=== PATIENT | male | born 1950 | race Caucasian/White ===

== ENCOUNTER → 2020-03-17 | Outpatient (CLI) | payer MEDICARE ==
--- NOTE | 2020-03-17 10:04 | Diagnostic Imaging Report ---
Indication: Fall 4 days ago with wrist pain. No comparison. 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 There are atherosclerotic vascular calcifications. There is no focal soft tissue swelling to alert attention to any particular site of discrete pain. No appreciable fracture deformity. There is no dislocation. Impression : Osteoarthritis and atherosclerosis. No fracture or acute finding apparent. Dictated by: Dictated on workstation # [id number]
== END ==
LOC: RAD FS 09:22
PROVIDERS: ATTEND Family Medicine
DX: M19.031 Primary osteoarthritis, right wrist (principal); I70.90 Unspecified atherosclerosis
CPT/HCPCS: 73110

== ENCOUNTER → 2022-05-04 | Outpatient (CLI) | payer MEDICARE ==
--- NOTE | 2022-05-04 11:38 | Diagnostic Imaging Report ---
INDICATION: Back pain, radiculopathy down the right. No priors. Frontal, lateral and bilateral oblique lumbar radiographs are performed. FINDINGS: No defect to the pedicles or pars. There is sclerotic facet arthrosis throughout the lumbar spine, but progressively more severe was removed caudally. There is degenerative disc space narrowing, endplate sclerosis and osteophytes throughout the lumbar spine. Endplate spurs are greater anterior than posterior. There is aortoiliac atherosclerotic vascular calcifications. There is very slight grade 1 degenerative retrolisthesis L2 on L3, L3 on L4 and L4 on L5. No acute endplate irregularity. IMPRESSION: 1. No acute or chronic fracture. Degenerative changes to the discs, endplates and facets throughout the lumbar spine are believed to account for multilevel mild grade 1 retrolisthesis. No acute appearing abnormality. 9. Given the magnitude of degenerative change and reported right-sided radiculopathy underlying stenosis would be suspected in this patient and nonemergent outpatient lumbar spine MRI may provide utility for greater characterization Dictated by: Dictated on workstation # [id number]
== END ==
LOC: RAD FS 09:57
PROVIDERS: ATTEND Family Medicine
DX: M47.26 Other spondylosis with radiculopathy, lumbar region (principal); M51.16 Intervertebral disc disorders with radiculopathy, lumbar region; M43.16 Spondylolisthesis, lumbar region
CPT/HCPCS: 72110